=== PATIENT | male | born 1985 | race Caucasian/White ===

== ENCOUNTER 2020-11-29 02:44 | Emergency (ER) | payer OTHER ==
[~2020-11-29] VITALS: Ht 182.9 cm; Wt 81.7 kg
[2020-11-29 02:58] VITALS: BP 168/105
[2020-11-29] MEDS ORDERED: GENTAK5 ML TOP (03:38)
== END 2020-11-29 03:45 | disposition home or self-care (01) ==
LOC: M.ERS 02:44
DX: T15.01XA Foreign body in cornea, right eye, initial encounter (principal); X58.XXXA Exposure to other specified factors, initial encounter; Y93.89 Activity, other specified; Y92.89 Other specified places as the place of occurrence of the external cause; Y99.8 Other external cause status